=== PATIENT | female | born 1925 | race Caucasian/White ===

== ENCOUNTER 2017-02-20 17:19 | Inpatient (IN) | payer OTHER ==
[~2017-02-20] VITALS: Ht 160 cm; Wt 70.4 kg
[~2017-02-20 17:19] MED LIST: AMLODIPINE BESY10 MG PO; ANTIVERT25 MG PO; APRESOLINE25 MG PO; BISOPROLOL FUMA10 MG PO; BISOPROLOL FUMAR5 M1 PO; BISOPROLOL FUMAR5 MG PO; CALTRATE 6001 TABLE1 PO; CIPRO250 MG PO; ERGOCALCIF50000 UNIT PO; LOPRESSOR100 M1 PO; LOPRESSOR25 MG PO; NORVASC10 MG PO; OMEPRAZOLE20 M3; OMEPRAZOLE20 MG PO; PRADAXA150 MG PO; PRAVACHOL40 MG PO; PRAVASTATIN SOD40 MG PO; PRILOSEC20 MG PO; RAMIPRIL10 MG PO; SALINE NASAL SP45 ML BOTH NARES; SYSTANE 0.3-0.1 EACH BOTH EYES; TYLENOL EXTRA500 MG PO; VITAMIN D250000 UNIT PO; XARELTO15 MG PO; ZEBETA5 MG PO
[2017-02-20 17:48] LABS: ADD MIUA? YES; BILIRUBIN NEGATIVE; BLOOD SMALL; COLOR AMBER ((YELLOW)); GLUCOSE (STRIP) NEGATIVE; KETONES 5; LEUKOCYTES MODERATE; NITRITE POSITIVE; PROTEIN (STRIP) 100; SPECIFIC GRAVITY 1.013 (1.000-1.030); UROBILINOGEN 0.2 MG/DL (0.2-1.0)
[2017-02-20 18:15] LABS: BACTERIA 2+ /HPF; CASTS PRESENT /LPF; CRYSTALS NONE SEEN; EPITHELIAL CELLS RARE /HPF; HYALINE CASTS 0-5 /LPF; MUCUS NONE SEEN /LPF; UCUL ADDED? YES; WHITE BLOOD CELLS TNTC /HPF (0-5)
[2017-02-20 18:21] LABS: EOSINOPHIL (%) 0.1 % (0-5); IMMATURE GRANULOCYTE (%) 0.3 % (0.0-0.7); INSTRUMENT ABS NEUTROPHIL CT 5.5 K/uL; LYMPHOCYTE COUNT 1.7 K/uL (1.0-2.8); MCH 29.1 PG (29.0-34.0); MCV 90.9 FL (83-99); MEAN PLAT.VOLUME 11.2 uM^3 (9.5-12.4); MONOCYTE (%) 7.8 % (3-12); MONOCYTE COUNT 0.6 K/uL (0-0.8); NEUTROPHIL (%) 69.6 % (45-76); NEUTROPHIL COUNT 5.5 K/uL (1.8-6.4); PLATELET COUNT 211 K/uL (156-360); RBC DIS.WIDTH-CV 14.1 % (11.8-14.6); RED BLOOD COUNT 4.84 M/uL (3.80-5.20); WHITE BLOOD COUNT 7.9 K/uL (4.1-10.2)
[2017-02-20 18:30] LABS: CHLORIDE 111 mEq/L (99-109); POTASSIUM 4.1 mEq/L (3.7-5.4)
[2017-02-20 18:31] LABS: SODIUM 147 mEq/L (136-147)
[2017-02-20 18:32] LABS: GLUCOSE 108 mg/dL (70-99)
[2017-02-20 18:34] LABS: ANION GAP 14 MEQ/L (2-14)
[2017-02-20 18:36] LABS: GFR ESTIMATE (CALCULATED) 22 mL/min/
[2017-02-20 18:37] LABS: UREA NITROGEN (BUN) 29 mg/dL (9-23)
[2017-02-20 18:42] LABS: TROP-I INTERPRETATION NEGATIVE; TROPONIN-I 0.09 ng/mL (0.0-0.30)
[2017-02-20 21:55] VITALS: BP 234/98
[2017-02-21] VITALS (10 sets, daily range): BP systolic 129–190; BP diastolic 57–91
[2017-02-21 01:12] LABS: TROP-I INTERPRETATION NEGATIVE; TROPONIN-I 0.09 ng/mL (0.0-0.30)
[2017-02-21 06:36] LABS: EOSINOPHIL COUNT 0.1 K/uL (0-0.3); HEMATOCRIT 39.9 % (36.0-46.0); IMMATURE GRANULOCYTE (%) 0.3 % (0.0-0.7); INSTRUMENT ABS NEUTROPHIL CT 3.6 K/uL; LYMPHOCYTE COUNT 1.7 K/uL (1.0-2.8); MCH 29.3 PG (29.0-34.0); MCHC 31.6 G/DL (30.0-36.0); MCV 92.8 FL (83-99); MEAN PLAT.VOLUME 11.7 uM^3 (9.5-12.4); MONOCYTE (%) 12.2 % (3-12); MONOCYTE COUNT 0.8 K/uL (0-0.8); NEUTROPHIL (%) 58.9 % (45-76); NEUTROPHIL COUNT 3.6 K/uL (1.8-6.4); PLATELET COUNT 164 K/uL (156-360); RBC DIS.WIDTH-CV 14.4 % (11.8-14.6); RBC DIS.WIDTH-SD 48.7 % (39-53); WHITE BLOOD COUNT 6.2 K/uL (4.1-10.2)
[2017-02-21 07:03] LABS: TROP-I INTERPRETATION NEGATIVE; TROPONIN-I 0.08 ng/mL (0.0-0.30)
[2017-02-21 07:05] LABS: ANION GAP 14 MEQ/L (2-14); CHLORIDE 114 MEQ/L (99-109); GLUCOSE 96 mg/dL (70-99); POTASSIUM 3.7 MEQ/L (3.7-5.4); SAMPLE HEMOLYSIS CHECK 0; SAMPLE ICTERIC CHECK 0; SAMPLE LIPEMIA CHECK 0; SODIUM 149 MEQ/L (136-147); UREA NITROGEN (BUN) 27 mg/dL (9-23)
[2017-02-21 07:19] LABS: GFR ESTIMATE (CALCULATED) 30 mL/min/
[2017-02-21 12:41] LABS: HDL CHOLESTEROL 34 MG/DL (Desirable>=50); LDL CHOLESTEROL 64 mg/dL (Desirable<100); NON-HDL CHOLESTEROL 94 mg/dL (Desirable<160); TOTAL CHOLESTEROL 128 mg/dL (Desirable<200); TRIGLYCERIDES 151 MG/DL (Normal: <150)
[2017-02-21 13:29] LABS: Estimated Average Glucose 143 mg/dL (70-123); HEMOGLOBIN A1c (GLYCOHEMOGLOB) 6.6 % HGB (Below 5.7)
[2017-02-22 03:54] VITALS: BP 156/70
[2017-02-22 07:50] VITALS: BP 176/68
[2017-02-22] MEDS ORDERED: ATORVASTATIN CA40 MG PO (12:28)
[2017-02-22] MEDS ORDERED: NIFEDIPINE ER30 MG PO (12:28)
[2017-02-22] MEDS ORDERED: AMLODIPINE BESY10 MG PO (12:28)
[2017-02-22] MEDS ORDERED: LABETALOL HCL100 MG PO (12:28)
[2017-02-22] MEDS ORDERED: LO-DOSE ASPIRIN81 M2 PO (12:28)
[2017-02-22] MEDS ORDERED: KEFLEX500 MG PO (12:29)
[2017-02-22 15:40] VITALS: BP 138/61
[2017-02-22 15:41] LABS: ANION GAP 11 MEQ/L (2-14); CHLORIDE 111 MEQ/L (99-109); GLUCOSE 141 mg/dL (70-99); POTASSIUM 3.6 MEQ/L (3.7-5.4); SAMPLE HEMOLYSIS CHECK 0; SAMPLE ICTERIC CHECK 0; SAMPLE LIPEMIA CHECK 0; SODIUM 144 MEQ/L (136-147); UREA NITROGEN (BUN) 22 mg/dL (9-23)
[2017-02-22 15:42] LABS: GFR ESTIMATE (CALCULATED) 45 mL/min/
[2017-02-22 19:44] VITALS: BP 154/67
[2017-02-22 23:43] VITALS: BP 144/60
[2017-02-23 04:27] VITALS: BP 137/62
[2017-02-23 09:02] VITALS: BP 139/63
[2017-02-23 11:27] VITALS: BP 119/57
== END 2017-02-23 14:31 | DRG 64 ==
LOC: EME → EDBD 17:19 → EME 17:19 → EDOF 20:25 → 5EAST 20:25 → 5SOUTH 20:25 → 5EAST 21:49 → 5SOUTH 02-21 16:31
PROVIDERS: Emergency Medicine; Hospitalist
DX: I63.40 Cerebral infarction due to embolism of unspecified cerebral artery (principal); G93.41 Metabolic encephalopathy; N17.9 Acute kidney failure, unspecified; N39.0 Urinary tract infection, site not specified; E86.9 Volume depletion, unspecified; F03.90 Unspecified dementia, unspecified severity, without behavioral disturbance, psychotic disturbance, mood disturbance, and anxiety; I48.0 Paroxysmal atrial fibrillation; I12.9 Hypertensive chronic kidney disease with stage 1 through stage 4 chronic kidney disease, or unspecified chronic kidney disease; E78.5 Hyperlipidemia, unspecified; B96.20 Unspecified Escherichia coli [E. coli] as the cause of diseases classified elsewhere; N18.3 Chronic kidney disease, stage 3 (moderate); I16.0 Hypertensive urgency; K21.9 Gastro-esophageal reflux disease without esophagitis; Z79.899 Other long term (current) drug therapy; Z87.891 Personal history of nicotine dependence; Z79.82 Long term (current) use of aspirin; Z91.81 History of falling; R41.82 Altered mental status, unspecified
CPT/HCPCS: 70450; 70551; 71010; 76770; 80048; 80061; 81003; 83036; 83605; 84484; 85025; 87040; 87077; 87086; 87186; 92610 GN; 93005; 93306; 93880; 99281; 99285; J0360; J0696; J1644; J2060; J7030; J7050